=== PATIENT | female | born 1970 | race Caucasian/White ===

== ENCOUNTER → 2017-06-27 | Outpatient (CLI) | payer BC ==
[~2017-06-27] MED LIST: ACYCLOVIR 200200 MG PO; AMOXICILLIN 50500 M1 PO; ANTIPYRINE-BENZ10 ML OT; ATIVAN0.5 MG PO; BACLOFEN 10MG T10 MG PO; CLONIDINE HCL0.1 MG PO; FLEXERIL PO; IBUPROFEN 600600 M1 PO; KEFLEX500 MG PO; NORCO 5-325 TA1 EACH PO; ONDANSETRON HCL4 M2 PO; PENICILLIN V P500 MG PO; PERCOCET 5-3251 EACH PO; PREDNISONE50 MG PO; PRENATAL COMPL1 EACH PO; VISTARIL 25 MG25 M1 PO; WELLBUTRIN SR150 MG PO; ZOLOFT100 MG PO
== END ==
LOC: RAD 11:13
DX: Z12.31 Encounter for screening mammogram for malignant neoplasm of breast (principal)

== ENCOUNTER → 2018-02-12 | Outpatient (CLI) | payer BC | LOC: RAD 12:28 | DX: R05 Cough (principal); Z87.81 Personal history of (healed) traumatic fracture ==

== ENCOUNTER 2018-02-24 14:05 | Emergency (ER) | payer BC ==
[~2018-02-24] VITALS: Ht 167.6 cm; Wt 129.7 kg
[2018-02-24] MEDS ORDERED: XANAX 0.25 MG0.25 MG PO (14:21)
[2018-02-24] MEDS ORDERED: HYDROCODONE-AP1 EAC6 PO (15:34)
[2018-02-24] MEDS ORDERED: NAPROSYN500 MG PO (15:34)
[2018-02-24 16:57] VITALS: BP 149/101
== END 2018-02-24 16:58 | disposition home or self-care (01) ==
LOC: ER 14:05
DX: S52.602A Unspecified fracture of lower end of left ulna, initial encounter for closed fracture (principal); S52.502A Unspecified fracture of the lower end of left radius, initial encounter for closed fracture; S90.31XA Contusion of right foot, initial encounter; S60.311A Abrasion of right thumb, initial encounter; Z87.891 Personal history of nicotine dependence; W10.8XXA Fall (on) (from) other stairs and steps, initial encounter; Y93.89 Activity, other specified; Y92.89 Other specified places as the place of occurrence of the external cause; Y99.8 Other external cause status

== ENCOUNTER 2018-02-26 10:53 | Emergency (ER) | payer BC ==
[~2018-02-26] VITALS: Ht 167.6 cm; Wt 129.7 kg
[~2018-02-26 10:53] MED LIST changes: +HYDROCODONE-AP1 EAC6 PO; +NAPROSYN500 MG PO; +XANAX 0.25 MG0.25 MG PO
[2018-02-26 10:54] VITALS: BP 136/89
[2018-02-26] MEDS ORDERED: HYDROCODONE-AP1 EAC6 PO (11:08)
== END 2018-02-26 12:00 | disposition home or self-care (01) ==
LOC: ER 10:53
DX: S52.92XD Unspecified fracture of left forearm, subsequent encounter for closed fracture with routine healing (principal); E66.9 Obesity, unspecified; Z68.42 Body mass index [BMI] 45.0-49.9, adult; Z87.891 Personal history of nicotine dependence; X58.XXXD Exposure to other specified factors, subsequent encounter

== ENCOUNTER 2018-03-08 14:26 | Emergency (ER) | payer OTHER ==
[~2018-03-08] VITALS: Ht 167.6 cm; Wt 129.3 kg
[2018-03-08] MEDS ORDERED: NORCO 10-325 T1 EACH PO (15:16)
[2018-03-08] MEDS ORDERED: CYCLOBENZAPRINE5 MG PO (15:16)
[2018-03-08] MEDS ORDERED: PREDNISONE 20 M20 MG PO (15:16)
[2018-03-08 16:10] VITALS: BP 142/83
== END 2018-03-08 16:11 | disposition home or self-care (01) ==
LOC: ER 14:26
DX: M54.30 Sciatica, unspecified side (principal); Z87.891 Personal history of nicotine dependence

== ENCOUNTER 2018-03-15 13:45 | Emergency (ER) | payer OTHER ==
[~2018-03-15] VITALS: Ht 167.6 cm; Wt 129.3 kg
[~2018-03-15 13:45] MED LIST changes: +CYCLOBENZAPRINE5 MG PO; +NORCO 10-325 T1 EACH PO; +PREDNISONE 20 M20 MG PO
[2018-03-15] MEDS ORDERED: NORCO 5-325 TA1 EACH PO (13:56)
[2018-03-15] MEDS ORDERED: PREDNISONE 20 M20 MG PO (13:56)
[2018-03-15] MEDS ORDERED: VALIUM5 MG PO (13:56)
[2018-03-15] MEDS ORDERED: PROZAC20 MG PO (13:57)
[2018-03-15 15:32] VITALS: BP 126/78
== END 2018-03-15 15:34 | disposition home or self-care (01) ==
LOC: ER 13:45
DX: M54.32 Sciatica, left side (principal); E66.9 Obesity, unspecified; F17.210 Nicotine dependence, cigarettes, uncomplicated

== ENCOUNTER 2018-06-29 16:41 | Emergency (ER) | payer OTHER ==
[~2018-06-29] VITALS: Ht 167.6 cm; Wt 120.2 kg
[~2018-06-29 16:41] MED LIST changes: +PROZAC20 MG PO; +VALIUM5 MG PO
[2018-06-29] MEDS ORDERED: XANAX 0.5 MG0.5 MG PO (16:59)
[2018-06-29] MEDS ORDERED: IBUPROFEN 600600 M1 PO (18:44)
[2018-06-29] MEDS ORDERED: CORICIDIN HBP1 EAC2 PO (18:44)
[2018-06-29] MEDS ORDERED: FLONASE 0.05%50 MCG NASAL (18:44)
[2018-06-29 18:52] VITALS: BP 143/94
== END 2018-06-29 18:55 | disposition home or self-care (01) ==
LOC: ER 16:41
DX: J32.9 Chronic sinusitis, unspecified (principal); E66.9 Obesity, unspecified; Z68.41 Body mass index [BMI] 40.0-44.9, adult; Z87.891 Personal history of nicotine dependence